=== PATIENT | female | born 1955 | race Caucasian/White ===

== ENCOUNTER → 2017-03-11 | Outpatient (REF) ==
[~2017-03-11] MED LIST: BACTRIM DS 8001 TAB PO; BUSPAR DIVIDOSE15 MG PO; CENTRUM SILVER1 TA1 PO; CLARITIN 1010 MG/TAB PO; CRESTOR 10MG10 MG PO; DOXYCYCLINE 10100 MG PO; FLAGYL500 MG PO; FLAX SEED OIL1000 MG PO; HEALTH CARE AM500 M3 PO; LAMICTAL200 MG PO; LYSINYL500 MG PO; PRILOSEC 20MG20 MG PO; REGLAN 5MG T5 MG/TAB PO; REQUIP1 MG PO; SEROQUEL25 MG PO; VITAMIN C500 MG PO; VITAMIN D1000 IU PO; WELLBUTRIN XL300 M1 PO; ZIPRASIDONE
== END ==
LOC: WSOH 16:00
DX: Z02.89 Encounter for other administrative examinations (principal)

== ENCOUNTER → 2017-06-26 | Outpatient (CLI) | payer OTHER | LOC: MC.RAD 14:19 | DX: Z12.31 Encounter for screening mammogram for malignant neoplasm of breast (principal) ==

== ENCOUNTER → 2017-12-12 | Outpatient (CLI) | payer OTHER | LOC: COL.LAB 11:21 | DX: R19.7 Diarrhea, unspecified (principal) ==

== ENCOUNTER → 2018-03-11 | Outpatient (CLI) | payer OTHER | LOC: MC.RAD 12:40 | DX: N64.89 Other specified disorders of breast (principal); N63.20 Unspecified lump in the left breast, unspecified quadrant ==

== ENCOUNTER → 2018-07-14 | Outpatient (CLI) | payer OTHER | LOC: MC.RAD 13:14 | DX: Z12.31 Encounter for screening mammogram for malignant neoplasm of breast (principal) ==

== ENCOUNTER 2018-09-09 05:15 | Day surgery (SDC) | payer OTHER ==
[2018-09-09] VITALS (7 sets, daily range): BP systolic 128–137; BP diastolic 74–90; PULSE 73–79; TEMP 98.2
[~2018-09-09] VITALS: Ht 160 cm; Wt 74.2 kg
[2018-09-09] MEDS ORDERED: VITAMINC1000TA PO (06:05)
[2018-09-09] MEDS ORDERED: OSCAL 500 TAB500 MG PO (06:28)
[2018-09-09] MEDS ORDERED: MASON NATURAL2000 IU PO (06:30)
[2018-09-09] MEDS ORDERED: REGLAN 10MG10 MG/TAB PO (06:34)
[2018-09-09] MEDS ORDERED: MAGNESIUM200 MG PO (06:38)
[2018-09-09] MEDS ORDERED: PROBIOTIC FORMU1 CAP PO (06:39)
[2018-09-09] MEDS ORDERED: METAMUCIL3.4 GM/Dos PO (06:40)
[2018-09-09] MEDS ORDERED: WELLBUTRIN XL300 M1 PO (06:41)
[2018-09-09] MEDS ORDERED: PROTEIN1 PDR PO (06:41)
[2018-09-09] MEDS ORDERED: QUESTRAN4 GM/9 GM PO (06:42)
[2018-09-09] MEDS ORDERED: WELLBUTRIN XL150 MG PO (06:42)
[2018-09-09] MEDS ORDERED: ATIVAN 1MG T1 MG/TAB PO (06:43)
[2018-09-09] MEDS ORDERED: INDERAL LA 60MG60 MG PO (06:43)
[2018-09-09] MEDS ORDERED: INDERAL 10MG10 MG PO (06:44)
[2018-09-09] MEDS ORDERED: TYLENOL 325MG325 MG PO (06:44)
[2018-09-09] MEDS ORDERED: ADVIL200 MG PO (06:45)
[2018-09-09] MEDS ORDERED: TUMS500 MG PO (06:46)
--- NOTE | 2018-09-09 08:05 | NUR ---
Patient returns to room 8 per cart from surgery and is awake and alert. Foot of cart elevated and post op shoe on. Se wrap dressing clean and dry on the right foot. Toes warm and pink. States that her foot is numb and is denying pain or nausea. Temp 97.2 and room air prasanth 100%.
--- NOTE | 2018-09-09 08:20 | NUR ---
Room air sats 96%. States that her right foot remains numb. Foot of cart is elevated and poornima wrap dressing dry.
--- NOTE | 2018-09-09 08:35 | NUR ---
States that she is able to wiggle her toes freely. Post op shoe in place. Drinking water and denies pain or nausea.
--- NOTE | 2018-09-09 08:50 | NUR ---
Room air sats 100%. Foot of cart elevated and denies need for pain medication. States that she is feeling her foot more.
--- NOTE | 2018-09-09 09:05 | NUR ---
Resting with the foot of cart elevated and poornima wrap dressing is clean and dry with post op shoe on. Toes pink.
--- NOTE | 2018-09-09 09:25 | NUR ---
[place] 7.5mg one tab for pain at 5-6/10. Eating applesauce and drinking water.
[2018-09-09] MEDS ORDERED: NORCO 325 MG-7.1 TAB PO (09:56)
[2018-09-09] MEDS ORDERED: CEPHALEXIN500 M1 PO (09:58)
--- NOTE | 2018-09-09 10:05 | NUR ---
Resting and states pain now 07/29. Foot of cart elevate and post op shoe on.
--- NOTE | 2018-09-09 10:10 | NUR ---
Assisted up to the bathroom with use of crutches and post op shoe on. Se wrap dressing clean and dry. Cruthces adjusted for accurate height.
--- NOTE | 2018-09-09 10:30 | NUR ---
Resting and awaits ride home. Eating muffin and drinking coffee. Foot of cart elevated and denies further pain.
--- NOTE | 2018-09-09 11:00 | NUR ---
Dismissal instructions signed and voices understanding of home cares and follow up as scheduled. Provided scritps for [place] and Keflex. Instructed to start Keflex this PM and to take [place] with food.
--- NOTE | 2018-09-09 12:09 | NUR ---
States that her pain rating is up to 7/10. Second [place] 7.5 one tab repeated for pain and in preparation for ride home. States that her ride will take her prescriptions to [facility] and they will deliver them to her later. Instructed to keep her right foot elevated at home.
--- NOTE | 2018-09-09 12:15 | NUR ---
Patient taken per wheelchair to front door with all belongings in hand and dismissed to home per private vehicle driven by friend. Post op shoe on and poornima wrap dressing clean and dry.
== END 2018-09-09 12:15 | disposition home or self-care (01) ==
LOC: SDCO 05:15
DX: M20.11 Hallux valgus (acquired), right foot (principal); M20.41 Other hammer toe(s) (acquired), right foot; M77.41 Metatarsalgia, right foot; J30.2 Other seasonal allergic rhinitis; Z79.899 Other long term (current) drug therapy; Z87.891 Personal history of nicotine dependence; F32.9 Major depressive disorder, single episode, unspecified; K21.9 Gastro-esophageal reflux disease without esophagitis; E78.00 Pure hypercholesterolemia, unspecified; M19.049 Primary osteoarthritis, unspecified hand; F31.9 Bipolar disorder, unspecified; M54.5 Low back pain; Z85.828 Personal history of other malignant neoplasm of skin
CPT/HCPCS: C1713; J0690; J2250; J2704; J3010; J7120; L8641

== ENCOUNTER 2018-11-16 09:30 | Day surgery (SDC) | payer OTHER ==
[~2018-11-16] VITALS: Ht 160 cm; Wt 75.3 kg
[~2018-11-16 09:30] MED LIST changes: +ADVIL200 MG PO; +ATIVAN 1MG T1 MG/TAB PO; +CEPHALEXIN500 M1 PO; +GEODON60 MG PO; +INDERAL 10MG10 MG PO; +INDERAL LA 60MG60 MG PO; +MAGNESIUM200 MG PO; +MASON NATURAL2000 IU PO; +METAMUCIL3.4 GM/Dos PO; +NORCO 325 MG-7.1 TAB PO; +OSCAL 500 TAB500 MG PO; +PROBIOTIC FORMU1 CAP PO; +PROTEIN1 PDR PO; +QUESTRAN4 GM/9 GM PO; +REGLAN 10MG10 MG/TAB PO; +REQUIP 1MG T1 MG/TAB PO; -REQUIP1 MG PO; +SEROQUEL 2525 MG/TAB PO; -SEROQUEL25 MG PO; +TUMS500 MG PO; +TYLENOL 325MG325 MG PO; +VITAMINC1000TA PO; +WELLBUTRIN XL150 MG PO; -ZIPRASIDONE
[2018-11-16 10:27] VITALS: BP 126/80; PULSE 74; TEMP 97.7
[2018-11-16] MEDS ORDERED: PRILOSEC 20MG20 MG PO (10:35)
[2018-11-16 13:40] VITALS: BP 136/86; PULSE 72; TEMP 97.5
[2018-11-16 13:55] VITALS: BP 134/83; PULSE 79
[2018-11-16 14:10] VITALS: BP 122/75; PULSE 80
[2018-11-16 14:25] VITALS: BP 131/75; PULSE 81
--- NOTE | 2018-11-16 14:36 | NUR ---
Pt returned via cart to opheim 2. A&O. VSS-see flowsheet. Pt has tolerated ice chips, coffee and a muffin. Denies pain. Unable to voluntarily move toes on right foot, circulation WNL. Ice pack in place on right foot with post op shoe in place over dressing. Denies needs or complaints.
--- NOTE | 2018-11-16 15:55 | NUR ---
Discharge teaching completed after pt voided and dressed for discharge. Pt verbalized understanding. Taken via wheelchair to private vehicle for dc home with sister driving.
== END 2018-11-16 15:55 | disposition home or self-care (01) ==
LOC: SDCO 09:30
DX: S96.121A Laceration of muscle and tendon of long extensor muscle of toe at ankle and foot level, right foot, initial encounter (principal); M19.071 Primary osteoarthritis, right ankle and foot; Z85.828 Personal history of other malignant neoplasm of skin; M19.041 Primary osteoarthritis, right hand; M19.042 Primary osteoarthritis, left hand; F31.9 Bipolar disorder, unspecified; G89.18 Other acute postprocedural pain; K21.9 Gastro-esophageal reflux disease without esophagitis; E78.00 Pure hypercholesterolemia, unspecified; Z88.6 Allergy status to analgesic agent; Z88.5 Allergy status to narcotic agent; Z88.1 Allergy status to other antibiotic agents; Z87.891 Personal history of nicotine dependence; Z80.1 Family history of malignant neoplasm of trachea, bronchus and lung; Z82.5 Family history of asthma and other chronic lower respiratory diseases; Z82.62 Family history of osteoporosis; Z82.61 Family history of arthritis; Z90.49 Acquired absence of other specified parts of digestive tract; J30.2 Other seasonal allergic rhinitis
CPT/HCPCS: J0690; J1100; J1170; J2250; J2405; J2704; J2795; J3010; J7120

== ENCOUNTER → 2019-07-11 | Outpatient (CLI) | payer OTHER | LOC: COL.RAD 07:51 | DX: K21.0 Gastro-esophageal reflux disease with esophagitis (principal); K44.9 Diaphragmatic hernia without obstruction or gangrene ==

== ENCOUNTER → 2019-07-15 | Outpatient (CLI) | payer OTHER | LOC: COL.RAD 07:31 | DX: K21.0 Gastro-esophageal reflux disease with esophagitis (principal) | CPT/HCPCS: A9541 ==

== ENCOUNTER → 2019-08-12 | Outpatient (CLI) | payer OTHER | LOC: MC.RAD 07:03 | DX: Z12.31 Encounter for screening mammogram for malignant neoplasm of breast (principal) ==

== ENCOUNTER 2020-04-13 08:43 | Day surgery (SDC) | payer OTHER ==
[2020-04-13] VITALS (12 sets, daily range): BP systolic 121–149; BP diastolic 41–93; PULSE 77–94; TEMP 97.9–98.6
[~2020-04-13] VITALS: Ht 160 cm; Wt 72.3 kg
--- NOTE | 2020-04-13 00:30 | NUR ---
Patient reported a headache and left shoulder pain at approximatley 2215. PRN norco administered. Patient reports minimal to no releif; a second norco tab is administered at 0020 per orders. Will continue to monitor and reassess.
[2020-04-13] MEDS ORDERED: PRESERVISION1 SGL PO (09:09)
[2020-04-13] MEDS ORDERED: TYLENOL 500MG500 MG PO (09:09)
[2020-04-13] MEDS ORDERED: TUMS500 MG (09:10)
[2020-04-13] MEDS ORDERED: MOTRIN 200200 MG/TAB PO (09:10)
--- NOTE | 2020-04-13 09:30 | NUR ---
Patient admitted to room 350. Med rec completed, patient very aware of her med list. Iv started to Right forarm on second attempt. Ivf per orders & pre op pepcid given with sip of water. Patient otherwise has been NPO. Patient nervous about surgery, but denies questions or concerns. Patient to OR with [facility] transporter. Will await her return post op
--- NOTE | 2020-04-13 13:21 | NUR ---
Patient has returned post op. Alert & oriented. Ice water provided. Denies nausea. Only complaint is of left shoudler pain. Scds ble. Vss on O2. Abdomen soft , lap site x4 with bandaids CDI.
[2020-04-13] MEDS ORDERED: NORCO 325 MG-51 TAB PO (16:35)
--- NOTE | 2020-04-13 16:48 | NUR ---
Patient reports pain elevated. One tab norco per request. Dr. Ambrocio rounded, plan of care reviewed. Full liquid dinner ordered, advised patient to take it slow & kitchen made aware that she is a vegitarian. Will monitor.
--- NOTE | 2020-04-13 18:41 | NUR ---
Patient tolerated full liquid dinner. [place] relived pain. Will report off to night nurse
--- NOTE | 2020-04-13 20:43 | NUR ---
Received report from IDRIS Gupta. Pt is lying in bed and has her call light within reach. Her bed is in lowest position.
--- NOTE | 2020-04-14 02:07 | NUR ---
Pt called out requesting something for pain. Pt was given IV morphine at this time. Pt had complaints of a headache and shoulder pain. Pt has her call light within reach.
[2020-04-14 05:02] VITALS: BP 134/82; PULSE 81; TEMP 98.6
[2020-04-14 07:47] VITALS: BP 135/81; PULSE 87; TEMP 97.9
--- NOTE | 2020-04-14 08:15 | NUR ---
Dr Rodriguez here to see patient.
--- NOTE | 2020-04-14 09:00 | NUR ---
Patient alert and oriented, answers questions appropriately. See assessment. Abdomen soft, non tender, non distended. Bowel sounds active x4 quads. +Flatus. Lap sites to abdomen with edges well approximated, no redness or drainage noted. Post op exercises reviewed. No c/o at this time.
[2020-04-14 11:37] VITALS: BP 149/93; PULSE 78; TEMP 97.8
--- NOTE | 2020-04-14 13:57 | NUR ---
Discharge instructions reviewed with patient, verbalized understanding. Discharged ambulatory to auto/home with friend at 1355.
--- NOTE | 2020-04-14 19:00 | NUR ---
SW met with patient at her bedside. Patient reports that she currently resides in [facility], and she lists her sister Margaux [phone] as her EMR( she lives in [place]). patient reports being independent with ADL's and she does not have a DPOA. Patient declined it at this time. Patient reports that she does not use any DME's and that her PCP is Dr. Carter. Patient reports her next appointment is August 2020. Patient reports that she gets her medications from a mail order agency and [facility] with no concerns. Patient declined Services at this time. Patient was educated about community services.
== END 2020-04-14 13:56 | disposition home or self-care (01) ==
LOC: SDCO 08:43 → SURG 08:47 → SDCO 10:30
DX: K21.0 Gastro-esophageal reflux disease with esophagitis (principal); K44.9 Diaphragmatic hernia without obstruction or gangrene; K66.0 Peritoneal adhesions (postprocedural) (postinfection); E78.00 Pure hypercholesterolemia, unspecified; K58.9 Irritable bowel syndrome, unspecified; R51 Headache; Z86.19 Personal history of other infectious and parasitic diseases; Z20.828 Contact with and (suspected) exposure to other viral communicable diseases; Z79.899 Other long term (current) drug therapy; Z98.51 Tubal ligation status; Z85.828 Personal history of other malignant neoplasm of skin; Z88.1 Allergy status to other antibiotic agents; Z88.8 Allergy status to other drugs, medicaments and biological substances; E78.5 Hyperlipidemia, unspecified; Z87.891 Personal history of nicotine dependence; F31.9 Bipolar disorder, unspecified; F41.9 Anxiety disorder, unspecified; G25.81 Restless legs syndrome
CPT/HCPCS: OP; J0330; J0690; J1100; J2270; J2405; J2704; J3010; J7120

== ENCOUNTER → 2020-08-14 | Outpatient (CLI) | payer OTHER ==
[~2020-08-14] MED LIST changes: +MOTRIN 200200 MG/TAB PO; +NORCO 325 MG-51 TAB PO; +PRESERVISION1 SGL PO; +TUMS500 MG; +TYLENOL 500MG500 MG PO
== END ==
LOC: MC.RAD 07:24
DX: Z12.31 Encounter for screening mammogram for malignant neoplasm of breast (principal)

== ENCOUNTER → 2020-08-17 | Outpatient (CLI) | payer OTHER | LOC: COL.RAD 09:27 | DX: M43.16 Spondylolisthesis, lumbar region (principal); M47.816 Spondylosis without myelopathy or radiculopathy, lumbar region; M48.061 Spinal stenosis, lumbar region without neurogenic claudication; M54.42 Lumbago with sciatica, left side ==

== ENCOUNTER 2020-09-04 08:45 | Outpatient (RCR) | payer OTHER | END 2020-09-05 13:25 | disposition home or self-care (01) | LOC: MKS.ESL.PT 08:45 | DX: M54.42 Lumbago with sciatica, left side (principal) ==

== ENCOUNTER → 2020-09-18 | Outpatient (CLI) | payer OTHER | LOC: MHCPAIN 12:17 | DX: M47.816 Spondylosis without myelopathy or radiculopathy, lumbar region (principal); M54.16 Radiculopathy, lumbar region; M48.062 Spinal stenosis, lumbar region with neurogenic claudication; M53.3 Sacrococcygeal disorders, not elsewhere classified; G89.29 Other chronic pain | CPT/HCPCS: G0463 ==

== ENCOUNTER → 2020-09-20 | Outpatient (CLI) | payer OTHER | LOC: MHCPAIN 11:47 | DX: M47.817 Spondylosis without myelopathy or radiculopathy, lumbosacral region (principal); M54.16 Radiculopathy, lumbar region | CPT/HCPCS: J1100; Q9967 ==

== ENCOUNTER → 2020-10-02 | Outpatient (CLI) | payer OTHER | LOC: MHCPAIN 09:01 | DX: M47.817 Spondylosis without myelopathy or radiculopathy, lumbosacral region (principal); M48.062 Spinal stenosis, lumbar region with neurogenic claudication; M54.5 Low back pain; M53.3 Sacrococcygeal disorders, not elsewhere classified | CPT/HCPCS: G0463 ==

== ENCOUNTER → 2020-10-04 | Outpatient (CLI) | payer OTHER | LOC: MHCPAIN 12:25 | DX: M47.817 Spondylosis without myelopathy or radiculopathy, lumbosacral region (principal); M54.16 Radiculopathy, lumbar region | CPT/HCPCS: J1100; Q9967 ==

== ENCOUNTER → 2020-10-10 | Outpatient (CLI) | payer OTHER | LOC: MHCPAIN 12:10 | DX: M47.816 Spondylosis without myelopathy or radiculopathy, lumbar region (principal); M53.3 Sacrococcygeal disorders, not elsewhere classified; M48.062 Spinal stenosis, lumbar region with neurogenic claudication; G89.29 Other chronic pain | CPT/HCPCS: G0463 ==

== ENCOUNTER → 2020-10-19 | Outpatient (CLI) | payer OTHER | LOC: COL.RAD 09:02 | DX: M43.16 Spondylolisthesis, lumbar region (principal); M54.16 Radiculopathy, lumbar region; Z96.89 Presence of other specified functional implants ==

== ENCOUNTER 2020-11-21 08:00 | Outpatient (RCR) | payer OTHER | END 2020-11-21 08:53 | disposition home or self-care (01) | LOC: MKS.ESL.PT 08:00 | DX: M54.42 Lumbago with sciatica, left side (principal); M54.41 Lumbago with sciatica, right side ==

== ENCOUNTER 2021-07-05 08:00 | Outpatient (RCR) | payer OTHER | END 2021-07-05 08:54 | disposition home or self-care (01) | LOC: MKS.ESL.PT 08:00 | DX: M48.062 Spinal stenosis, lumbar region with neurogenic claudication (principal); M43.16 Spondylolisthesis, lumbar region ==

== ENCOUNTER → 2021-09-04 | Outpatient (CLI) | payer MEDICARE, OTHER | LOC: MC.RAD 06:56 | DX: Z12.31 Encounter for screening mammogram for malignant neoplasm of breast (principal) ==

== ENCOUNTER 2021-10-22 07:33 | Day surgery (SDC) | payer OTHER ==
[~2021-10-22] VITALS: Ht 160 cm; Wt 73.5 kg
[2021-10-22] MEDS ORDERED: WELLBUTRIN SR150 M1 PO (08:35)
[2021-10-22] MEDS ORDERED: ATIVAN 0.50.5 MG/TAB PO (08:37)
[2021-10-22] MEDS ORDERED: GEODON60 MG PO (08:39)
[2021-10-22] MEDS ORDERED: BUSPAR 30MG30 MG/TAB PO (08:41)
[2021-10-22 08:44] VITALS: BP 127/88; PULSE 76; TEMP 97.1
[2021-10-22] MEDS ORDERED: MIRTAZAPINE7.5 MG PO (08:44)
[2021-10-22] MEDS ORDERED: NORVASC2.5 MG PO (08:45)
[2021-10-22] MEDS ORDERED: FLEXERIL 1010 MG/TAB PO (08:48)
[2021-10-22] MEDS ORDERED: BONIVA150 MG PO (08:52)
[2021-10-22] MEDS ORDERED: LYSINE1000 MG PO (09:03)
[2021-10-22] MEDS ORDERED: ZYRTEC10MGSGL PO (09:10)
[2021-10-22 10:10] VITALS: BP 130/94; PULSE 80; TEMP 97.6
--- NOTE | 2021-10-22 10:10 | NUR ---
PT RETURNED TO BAY 4 VIA CART FROM ENDO LAB, WALKED TO CHAIR, AWAKE AND ALERT, NO C/O, TAKES SNACK, CALL LIGHT IN REACH, SISTER CAME TO ROOM
[2021-10-22 10:25] VITALS: BP 127/86; PULSE 74
--- NOTE | 2021-10-22 10:25 | NUR ---
IN ROOM TO SEE PT. IV D'CD INTACT AND PT UP AND DRESSED
[2021-10-22 10:40] VITALS: BP 144/95; PULSE 74
--- NOTE | 2021-10-22 10:40 | NUR ---
REVIEWED DISCHARGE INST. WITH PT ON FOLLOWUP, PRECAUTIONS AND ACTIVITY WITH VERBAL UNDERSTANDING. PT DISCHARGED VIA W/C AT 1100
== END 2021-10-22 11:00 | disposition home or self-care (01) ==
LOC: SDCO 07:33
DX: Z12.11 Encounter for screening for malignant neoplasm of colon (principal); K64.0 First degree hemorrhoids; K57.30 Diverticulosis of large intestine without perforation or abscess without bleeding; Z79.899 Other long term (current) drug therapy
CPT/HCPCS: J2704; J7120

== ENCOUNTER → 2022-10-15 | Outpatient (CLI) | payer MEDICARE, BC ==
[~2022-10-15] MED LIST changes: +ATIVAN 0.50.5 MG/TAB PO; +BONIVA150 MG PO; +BUSPAR 30MG30 MG/TAB PO; +FLEXERIL 1010 MG/TAB PO; +LYSINE1000 MG PO; +MIRTAZAPINE7.5 MG PO; +NORVASC2.5 MG PO; +WELLBUTRIN SR150 M1 PO; +ZYRTEC10MGSGL PO
== END ==
LOC: MC.RAD 07:40
DX: Z12.31 Encounter for screening mammogram for malignant neoplasm of breast (principal)

== ENCOUNTER → 2023-03-19 | Outpatient (RCR) | payer MEDICARE, BC | END | disposition home or self-care (01) | LOC: MKS.ESL.PT | DX: M75.102 Unspecified rotator cuff tear or rupture of left shoulder, not specified as traumatic (principal); Z98.890 Other specified postprocedural states ==

== ENCOUNTER 2023-06-15 11:15 | Outpatient (RCR) | payer MEDICARE, BC | END 2023-06-18 | disposition home or self-care (01) | LOC: MKS.ESL.PT | DX: M16.12 Unilateral primary osteoarthritis, left hip (principal); Z96.642 Presence of left artificial hip joint ==

== ENCOUNTER 2023-07-17 12:45 | Outpatient (RCR) | payer MEDICARE, BC | END 2023-07-19 | disposition home or self-care (01) | LOC: MKS.ESL.PT | DX: M16.12 Unilateral primary osteoarthritis, left hip (principal); Z96.642 Presence of left artificial hip joint; Z98.890 Other specified postprocedural states ==

== ENCOUNTER → 2023-10-29 | Outpatient (CLI) | payer MEDICARE, BC ==
[~2023-10-29] MED LIST changes: +CLARITIN LIQUI-10 MG PO; +FLONASEALLERGY NS; +FOSAMAX 70MG TA70 MG PO; +IRON TABLETS325 MG PO; +MAGNESIUM250 M1 PO; +MELATONIN5 M1 SL; +NEURONTIN300 MG/CAP PO; +PATADAY5 ML OP; +PRIL40 PO; +TOPROL XL 50MG50 MG PO; +VITAMIN B12 781 TAB PO; +WELLBUTRIN SR100 M1 PO; -WELLBUTRIN SR150 M1 PO; +ZANAFLEX CAPSULE2 MG PO; +ZOLOFT 100MG100 MG PO; +ZYRTEC 10MG10 MG PO
== END ==
LOC: MC.RAD 09:37
DX: Z12.31 Encounter for screening mammogram for malignant neoplasm of breast (principal)